=== PATIENT | male | born 1965 | race Caucasian/White ===

== ENCOUNTER 2018-10-27 18:40 | Emergency (ER) | payer OTHER ==
[2018-10-27 19:10] VITALS: BP 142/83
[2018-10-27] MEDS ORDERED: Albuterol/Ipratropium NEB.SOL* Albuterol 2.5 MG/Ipratropium 0.5 MG 3 ML INH ONE (19:18)
--- NOTE | 2018-10-27 19:21 | ED ---
Respiratory - HPI Summary HPI Summary: 53-year-old male presents with cough for the past 3 days. He states he has the flu. He states he is concerned he has pneumonia. His cough has been getting worsening. has been having low-grade fevers. Symptoms seem to be improving but today they got worse. States is sick with similar symptoms. He denies any chest pain. He admits to occasional wheezing. He admits to myalgias. He admits occasional sore throat. No abdominal pain. No nausea or vomiting. Nonsmoker. Has no medical history. - History of Current Complaint Chief Complaint: UCRespiratory Stated Complaint: COUGH Time Seen by Provider: 10/27/18 19:12 Pain Intensity: 3 - Allergy/Home Medications Allergies/Adverse Reactions: Allergies Allergy/AdvReac Type Severity Reaction Status Date / Time No Known Allergies Allergy Verified 10/27/18 19:10 PMH/Surg Hx/FS Hx/Imm Hx Endocrine/Hematology History: Denies: Hx Anticoagulant Therapy Respiratory History: Denies: Hx Asthma, Hx Chronic Obstructive Pulmonary Disease (COPD) Infectious Disease History: No Infectious Disease History: Denies: Traveled Outside the [place] in Last 30 Days - Family History Known Family History: Positive: Non-Contributory - Social History Alcohol Use: Occasionally Substance Use Type: Reports: None Smoking Status (MU): Never Smoked Tobacco Review of Systems Positive: Fever Positive: Sore Throat, Nasal Discharge Negative: Chest Pain Positive: Shortness Of Breath, Cough All Other Systems Reviewed And Are Negative: Yes Physical Exam Triage Information Reviewed: Yes Vital Signs On Initial Exam: Initial Vitals Temp Pulse Resp BP Pulse Ox 100.3 F 86 17 142/83 100 10/27/18 19:05 10/27/18 19:05 10/27/18 19:05 10/27/18 19:05 10/27/18 19:05 Vital Signs Reviewed: Yes Appearance: Positive: Well-Appearing Skin: Positive: Warm, Dry Head/Face: Positive: Normal Head/Face Inspection Eyes: Positive: Normal, EOMI, PEDRO LUIS, Conjunctiva Clear ENT: Positive: Normal ENT inspection, Pharynx normal, TMs normal Neck: Positive: Supple, Nontender, No Lymphadenopathy Respiratory/Lung Sounds: Positive: Breath Sounds Present, Wheezes Cardiovascular: Positive: Normal, RRR Abdomen Description: Positive: Nontender, Soft Bowel Sounds: Positive: Present Musculoskeletal: Positive: Normal Neurological: Positive: Normal Psychiatric: Positive: Normal Diagnostics - Vital Signs Vital Signs Temp Pulse Resp BP Pulse Ox 10/27/18 19:05 100.3 F 86 17 142/83 100 - Laboratory Lab Statement: Any lab studies that have been ordered have been reviewed, and results considered in the medical decision making process. - Radiology chest Radiology Interpretation Completed By: Radiologist Summary of Radiographic Findings: no active disease Disposition - Course Course Of Treatment: 53-year-old male presents with cough for the past 3 days. He states he has the flu. He states he is concerned he has pneumonia. His cough has been getting worsening. has been having low-grade fevers. Symptoms seem to be improving but today they got worse. States is sick with similar symptoms. He denies any chest pain. He admits to occasional wheezing. He admits to myalgias. He admits occasional sore throat. No abdominal pain. No nausea or vomiting. Nonsmoker. Has no medical history. On exam mild wheezing noted on the right. Chest x-ray normal. influenza A positive. We'll discharge with inhaler. patient blood pressure is elevated at this visit and can follow up with primary about such. patient understand and agrees with plan. - Differential Dx - Cardiopulmonary Differential Diagnoses - Cardiopulmonary: Bronchitis, Influenza, Lower Resp Infection - Diagnoses Provider Diagnoses: Influenza A Discharge - Sign-Out/Discharge Documenting (check all that apply): Patient Departure All imaging exams completed and their final reports reviewed: No - Discharge Plan Condition: Good Disposition: HOME Prescriptions: Albuterol HFA INHALER* [Ventolin HFA Inhaler*] 1 puff INH Q6H PRN #1 mdi PRN Reason: Cough Patient Education Materials: Influenza (ED) Referrals: Maris Minaya MD [Primary Care Provider] - Additional Instructions: Use inhaler one puff every 4 hours for cough as needed Take tyenlol or ibuprofen as needed for fever Drink plenty of fluids Follow up with primary care physician Return to urgent care if develop any new or worsening symptoms - Billing Disposition and Condition Condition: GOOD Disposition: Home - Attestation Statements Provider Attestation: I was available for consult. This patient was seen by the [facility]. The patient was not presented to, seen by, or examined by me. -Jose
[2018-10-27 19:38] LABS: Influenza A Molecular POSITIVE (Negative)
--- NOTE | 2018-10-28 08:01 | UC ---
- Progress Note Progress Note: CXR: IMPRESSION: HYPERINFLATION, CONSISTENT WITH COPD. NO ACTIVE CARDIOPULMONARY DISEASE. No change in plan of care Course/Dx - Diagnoses Provider Diagnoses: Influenza A Discharge - Sign-Out/Discharge Documenting (check all that apply): Post-Discharge Follow Up All imaging exams completed and their final reports reviewed: Yes - Discharge Plan Condition: Good Disposition: HOME Prescriptions: Albuterol HFA INHALER* [Ventolin HFA Inhaler*] 1 puff INH Q6H PRN #1 mdi PRN Reason: Cough Patient Education Materials: Influenza (ED) Referrals: Maris Minaya MD [Primary Care Provider] - Additional Instructions: Use inhaler one puff every 4 hours for cough as needed Take tyenlol or ibuprofen as needed for fever Drink plenty of fluids Follow up with primary care physician Return to urgent care if develop any new or worsening symptoms - Billing Disposition and Condition Condition: GOOD Disposition: Home - Attestation Statements Provider Attestation: I was available for consult. This patient was seen by the [facility]. The patient was not presented to, seen by, or examined by me. -Jose
== END 2018-10-27 19:50 | disposition home or self-care (01) ==
LOC: UCEAST 18:40
DX: J10.1 Influenza due to other identified influenza virus with other respiratory manifestations (principal); M79.10 Myalgia, unspecified site; R05 Cough
CPT/HCPCS: 71046; 99212; A9270-GY; G0463